=== PATIENT | female | born 1945 | race Caucasian/White ===

== ENCOUNTER 2024-12-15 08:18 | Inpatient (IN) | payer MEDICARE, OTHER ==
[~2024-12-15] VITALS: Ht 157.5 cm; Wt 72.1 kg
[2024-12-15] MEDS ORDERED: FENTANYL PF 100MCG/2ML AMPUL ONE (08:31)
[2024-12-15] MEDS ORDERED: MIDAZOLAM HCL 2 MG/2ML VIAL ONE (08:31)
[2024-12-15] MEDS ORDERED: LIDOCAINE 2%-EPI 1:100,000 30 ML VIAL ONE (08:37)
[2024-12-15] MEDS ORDERED: VANCOMYCIN 1 GM VIAL ONE (08:38)
[2024-12-15] MEDS ORDERED: dexaMETHasone SOD PHOSPHATE 1 ML ONE (08:38)
[2024-12-15] MEDS ORDERED: HYDROMORPHONE 1 MG/1 ML DISP.SYRIN IV PRN ×2 (09:00→12:00)
[2024-12-15] MEDS ORDERED: CELLULOSE,OXIDIZED 1 PKT EACH MC ONE (09:22)
[2024-12-15] MEDS ORDERED: VASOPRESSIN INJ 20 UNIT/ML VIAL ONE (09:31)
[2024-12-15 11:30] VITALS: BP 122/78; TEMP 98; O2SAT 95
[2024-12-15] MEDS ORDERED: ASPI-1169 PO (11:56)
[2024-12-15] MEDS ORDERED: LEVO112T5 PO (11:56)
[2024-12-15] MEDS ORDERED: MULT-594 PO (11:56)
[2024-12-15] MEDS ORDERED: TELM80TA9 PO (11:56)
[2024-12-15] MEDS ORDERED: GABA300C PO (11:56)
[2024-12-15] MEDS ORDERED: METO25TA4 PO (11:56)
[2024-12-15] MEDS ORDERED: TEMA7.5C12 PO (11:56)
[2024-12-15] MEDS ORDERED: ATOR40TA PO (11:56)
[2024-12-15] MEDS ORDERED: ACETAMINOPHEN 325 MG TABLET PO PRN (12:00)
[2024-12-15] MEDS ORDERED: ONDANSETRON HCL/PF 4 MG/2 ML VIAL IVP PRN (12:00)
[2024-12-15] MEDS ORDERED: IV NS 0.9% 1,000 ML IV PRN (12:00)
[2024-12-15] MEDS ORDERED: TEMAZEPAM 7.5 MG CAPSULE PO PRN (13:30)
[2024-12-15 20:28] VITALS: BP 139/90; TEMP 98.4; O2SAT 95
[2024-12-15] MEDS: VANCOMYCIN 1 GM in IV D5W 250ml IV SCH (20:50)
[2024-12-15] MEDS: GABAPENTIN 300 MG CAPSULE PO SCH (21:15)
[2024-12-16 08:00] VITALS: BP 118/69; TEMP 98.8; O2SAT 100
[2024-12-16 09:04] VITALS: BP 139/90
[2024-12-16] MEDS: MULTIVIT W/MINERALS 1 TAB TABLET PO SCH (09:04)
[2024-12-16] MEDS: ASPIRIN 81 MG TAB.CHEW PO SCH (09:04)
[2024-12-16] MEDS: LEVOTHYROXINE SODIUM 112 MCG TABLET PO SCH (09:04)
[2024-12-16] MEDS: METOPROLOL SUCCINATE 25 MG TAB.SR.24H PO SCH (09:04)
[2024-12-16] MEDS: LOSARTAN POTASSIUM 50 MG TABLET PO SCH (09:04)
[2024-12-16] MEDS: ATORVASTATIN 40 MG TABLET PO SCH (09:05)
== END 2024-12-16 13:30 | disposition home or self-care (01) | DRG 496 ==
LOC: DS 08:18 → MED 11:24
PROVIDERS: ADMIT Nurse Practitioner Acute Care; ATTEND Nurse Practitioner Acute Care
PROC: 0NUR07Z Supplement Maxilla with Autologous Tissue Substitute, Open Approach (ICD-10-PCS; principal; 2024-12-16)
PROC: 0NSR04Z Reposition Maxilla with Internal Fixation Device, Open Approach (ICD-10-PCS; 2024-12-16)
PROC: 0N5R0ZZ Destruction of Maxilla, Open Approach (ICD-10-PCS; 2024-12-16)
PROC: 0NPW04Z Removal of Internal Fixation Device from Facial Bone, Open Approach (ICD-10-PCS; 2024-12-16)
DX: T84.69XA Infection and inflammatory reaction due to internal fixation device of other site, initial encounter (principal); D68.59 Other primary thrombophilia; S02.40DA Maxillary fracture, left side, initial encounter for closed fracture; S02.40CA Maxillary fracture, right side, initial encounter for closed fracture; M87.9 Osteonecrosis, unspecified; M27.2 Inflammatory conditions of jaws; I10 Essential (primary) hypertension; E03.9 Hypothyroidism, unspecified; I25.10 Atherosclerotic heart disease of native coronary artery without angina pectoris; Z82.49 Family history of ischemic heart disease and other diseases of the circulatory system; E66.01 Morbid (severe) obesity due to excess calories; Z88.0 Allergy status to penicillin; Y83.8 Other surgical procedures as the cause of abnormal reaction of the patient, or of later complication, without mention of misadventure at the time of the procedure; Y92.009 Unspecified place in unspecified non-institutional (private) residence as the place of occurrence of the external cause; X58.XXXA Exposure to other specified factors, initial encounter; Y92.9 Unspecified place or not applicable; D16.4 Benign neoplasm of bones of skull and face
CPT/HCPCS: A4338; C1713; G0378; J0330; J1100; J1885; J2250; J2405; J2704; J3010; J3370; J3490; J7030; J7060

== ENCOUNTER → 2025-07-20 | Day surgery (SDC) | payer MEDICARE, OTHER ==
[~2025-07-20] MED LIST: ASPI-1169 PO; ATOR40TA PO; GABA300C PO; LEVO112T5 PO; METO25TA4 PO; MULT-594 PO; TELM80TA9 PO; TEMA7.5C12 PO
[2025-07-20 11:20] LABS: PLATELET COUNT (AUTO) 279 K/uL (150-450); RED BLOOD CELL COUNT(AUTO) 4.29 MIL/uL (4.0-5.2); RED CELL DISTRIBUTION WIDTH 12.9 % (11.5-15.0); WHITE BLOOD COUNT (AUTO) 8.9 K/uL (4.3-11.0)
[2025-07-20 11:24] LABS: APPEARANCE,URINE CLEAR (CLEAR); BLOOD, URINE TRACE-INTA Ery/uL (NEGATIVE); LEUKOCYTE ESTERASE ,URINE NEGATIVE (NEGATIVE); NITRITE, URINE NEGATIVE (NEGATIVE); UGLUCOSE NEGATIVE (NEGATIVE)
[2025-07-20 11:26] LABS: ADD URINE CULTURE NO
== END | disposition home or self-care (01) ==
LOC: DS 09:13
PROVIDERS: ATTEND Dentist Oral and Maxillofacial Surgery
DX: I10 Essential (primary) hypertension (principal); Z53.8 Procedure and treatment not carried out for other reasons; Z79.82 Long term (current) use of aspirin; Z79.899 Other long term (current) drug therapy; Z88.0 Allergy status to penicillin
CPT/HCPCS: 36415; 71045-TC; 81001; 85025-TC; 87086-TC